=== PATIENT | female | born 1970 | race Caucasian/White ===

== ENCOUNTER 2019-06-13 20:12 | Emergency (ER) | payer BC ==
[~2019-06-13] VITALS: Ht 157.5 cm; Wt 77.1 kg
[~2019-06-13 20:12] MED LIST: DOXY100C2 PO; HYDR-3164 PO; PROM118S3 PO
[2019-06-13 21:35] LABS: BASO # 0.1 x10^3/uL (0.0-0.2); BASO % 0 % (0-3); EOS # 0.1 x10^3/uL (0.0-0.7); EOS % 1 % (0-3); HEMATOCRIT 39.6 % (36.0-47.0); HEMOGLOBIN 13.5 g/dL (12.0-15.5); LYMPH # 3.6 x10^3/uL (1.0-4.8); LYMPH % 23 % (24-48); MEAN CORPUSCULAR HEMOGLOBIN 29 pg (25-35); MEAN CORPUSCULAR HGB CONC 34 g/dL (31-37); MEAN CORPUSCULAR VOLUME 86 fL (79-100); MONO # 0.7 x10^3/uL (0.0-1.1); MONO % 5 % (0-9); NEUT # 11.3 x10^3/uL (1.8-7.7); NEUT % 72 % (31-73); PLATELET COUNT 370 x10^3/uL (140-400); RED BLOOD COUNT 4.62 x10^6/uL (3.50-5.40); WHITE BLOOD COUNT 15.8 x10^3/uL (4.0-11.0)
[2019-06-13 21:36] LABS: BILIRUBIN,URINE NEGATIVE (NEG); CLARITY,URINE CLEAR; COLOR,URINE YELLOW; NITRITE,URINE NEGATIVE (NEG); PH,URINE 5.5; PROTEIN,URINE NEGATIVE (NEG-TRACE); UROBILINOGEN,URINE 0.2 mg/dL (0.2 mg/dL)
[2019-06-13 21:41] LABS: BACTERIA,URINE 0 /HPF (0-FEW); SQUAMOUS EPITHELIAL CELL,UR FEW /LPF; WBC,URINE OCC /HPF (0-4)
[2019-06-13 21:43] LABS: BARBITURATES NEG (NEG); BENZODIAZEPINES NEG (NEG); CANNABINOIDS NEG (NEG); COCAINE NEG (NEG); METHADONE NEG (NEG); OPIATES POS (NEG); PHENCYCLIDINE NEG (NEG)
[2019-06-13 21:51] LABS: AMPHETAMINE/METHAMPHETAMINE NEG (NEG)
[2019-06-13 21:56] LABS: CALCIUM 8.8 mg/dL (8.5-10.1); GFR 59.2; POTASSIUM 3.9 mmol/L (3.5-5.1)
[2019-06-13] MEDS ORDERED: IV NORMAL SALINE 1000ML BAG 1,000 ML IV ONE (22:00)
[2019-06-13] MEDS ORDERED: ONDANSETRON PF 4 MG/2 ML VIAL. IV ONE (22:00)
[2019-06-13] MEDS ORDERED: MORPHINE SULFATE 10 MG/ML VIAL. IV ONE (22:00)
[2019-06-13 22:05] LABS: ALBUMIN/GLOBULIN RATIO 1.1 (1.0-1.7); TOTAL BILIRUBIN 0.6 mg/dL (0.2-1.0); TOTAL PROTEIN 7.8 g/dL (6.4-8.2)
[2019-06-13] MEDS ORDERED: CONTRAST GIVEN. MC PRN (22:30)
[2019-06-13] MEDS ORDERED: CIPROFLOXACIN 400MG PREMIX 200 ML IV ONE (23:00)
[2019-06-13] MEDS ORDERED: IOHEXOL 300 MG/ML 100ML VIAL. IV ONE (23:00)
[2019-06-13] MEDS ORDERED: HYDROmorphone 2 MG/ML VIAL IV ONE (23:30)
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
--- NOTE | 2019-06-13 23:47 | RAD ---
CT abdomen and pelvis with contrast. HISTORY: Abdominal pain, history of diverticulitis. CT scan the abdomen and pelvis was done using 60 mL Omnipaque 300 contrast. Lung bases are clear. There is no pleural effusion. A liver lesion is not identified. The patient's had a cholecystectomy. Spleen and adrenal glands are normal. Pancreas is normal. There is no mass or hydronephrosis in the kidneys. There is no free air or bowel obstruction or ascites. There is no adenopathy. Appendix is normal. Uterus and ovaries are normal. There is thickening of the wall of the sigmoid colon. There is pericolonic inflammation along the sigmoid colon consistent with an acute diverticulitis. An abscess is not identified at this time. The pattern is similar to the old study from April 2011. IMPRESSION: 1. Thickening the wall the sigmoid colon with pericolonic inflammation consistent with an acute diverticulitis. 2. No free fluid or abscess noted. 3. Normal appendix. 4. No other acute finding. RS Compliance Statement: One or more of the following individualized dose reduction techniques were utilized for this examination: 1. Automated exposure control 2. Adjustment of the mA and/or kV according to patient size 3. Use of iterative reconstruction technique Electronically signed by: Hayden Ca MD (06/13/2019 11:44 PM) [facility]
[2019-06-14 00:04] VITALS: BP 101/57
[2019-06-14] MEDS ORDERED: CIPR500T94 PO (00:35)
[2019-06-14] MEDS ORDERED: METR500T PO (00:35)
[2019-06-14] MEDS ORDERED: ONDA4TAB12 PO (00:35)
[2019-06-14] MEDS ORDERED: HYDR-3164 PO (00:38)
== END 2019-06-14 00:46 | disposition home or self-care (01) ==
LOC: ER 20:12
DX: K57.32 Diverticulitis of large intestine without perforation or abscess without bleeding (principal); R19.7 Diarrhea, unspecified; R11.0 Nausea; K21.9 Gastro-esophageal reflux disease without esophagitis; Z98.890 Other specified postprocedural states; Z90.49 Acquired absence of other specified parts of digestive tract; Z88.0 Allergy status to penicillin
CPT/HCPCS: 36415; 74177; 80053; 80307; 81001; 83690; 85025; 96361; 96365; 96368; 96375; 99285; G0480; J0744; J1170; J2270; J2405; J3490; J7030; Q9967